=== PATIENT | male | born 1980 | race Native Hawaiian/Other Pacific Islander ===

== ENCOUNTER 2018-01-27 07:17 | Day surgery (SDC) | payer OTHER ==
[2018-01-21 12:22] VITALS: BMI 25.5
[2018-01-27 08:17] VITALS: RESP 18
[2018-01-27] MEDS ORDERED: Lidocaine 2% w Epi 1:100,000 Inj IJ ONE (09:01)
[2018-01-27] MEDS ORDERED: Bupivacaine 0.25% 20 ML INJ IJ ONE (09:01)
[2018-01-27] MEDS ORDERED: ceFAZolin 1 gm in NS 2 GM/200 ML BAG IVPB ONE (09:01)
[2018-01-27] MEDS ORDERED: Propofol 10 mg/ml Inj (20 ML) ONE ×2 (09:05→09:58)
[2018-01-27] MEDS ORDERED: Midazolam 2 MG/2 ML VIAL ONE ×2 (09:06→09:12)
[2018-01-27] MEDS ORDERED: HYDROmorphone 0.5 mg/0.5 ml ISec IVP PRN (10:28)
--- NOTE | 2018-01-27 10:32 | PCM.SURG1 ---
Surgeon's Initial Post Op Note - Surgeon's Notes Surgeon: Dr. Sarmiento Geotechnical Engineering Technician: Dr. Kaiser PGY-4 Type of Anesthesia: IV Sedation, Local Pre-Operative Diagnosis: Lipoma of left upper back Operative Findings: Lipoma of left upper back Post-Operative Diagnosis: Lipoma of left upper back Operation Performed: Excision of lipoma from left upper back Specimen/Specimens Removed: lipoma Estimated Blood Loss: EBL {In ML}: 10 Blood Products Given: N/A Drains Used: No Drains Post-Op Condition: Good Date of Surgery/Procedure: 01/27/18 Time of Surgery/Procedure: 10:32
[2018-01-27 11:36] VITALS: O2SAT 100
--- NOTE | 2018-01-27 12:08 | OP ---
PROCEDURE DATE: 01/27/2018 PREOPERATIVE DIAGNOSIS: A large lipoma of the right upper back and neck area. POSTOPERATIVE DIAGNOSIS: A large lipoma of the right upper back and neck area. PROCEDURES PERFORMED: 1. Excision of the large upper back lipoma of approximately 10 x 12 cm size. 2. Excision of the redundant skin, 8 x 2 cm size. 3. Layered closure of the wound complex, 10 x 5 cm size. ANESTHESIA: Local anesthesia plus sedation. ESTIMATED BLOOD LOSS: Around 10 mL. DRAINS: None. PATHOLOGY: A large lipoma of the right upper back and neck area as well as the redundant skin was sent for the pathology. COMPLICATIONS: None. INTRAOPERATIVE FINDINGS: The patient had a large lipoma of the right upper back of approximately 10 x 12 cm size with extremely stressed out upper back skin. DESCRIPTION OF PROCEDURE: On intraoperative steps, this is a 37-year-old male who was diagnosed with a large lipoma of the right upper back. The patient was consented for excision of the lipoma, brought to the OR, placed in the left lateral position. The right upper back and neck area was prepped and draped in usual sterile fashion. Local anesthesia was injected and first an elliptical 8 x 2 cm incision was made and upper and lower flap was created, the lateral and medial dissection was done. The dissection was carried down deep up to the underlying fascia as well as the muscles and first lipoma was excised from medially to laterally and the finger-like projection of lipoma from all the sides was also excised, the lipoma was completely excised and it was sent off the table for the pathology. Proper hemostasis was achieved. The wound was irrigated. Now, the patient had upper flap extra redundant skin and to prevent the postoperative seroma as well as the hematoma and loose skin, the upper flap was stressed and 8 x 2 cm another skin flap was excised and it was sent off the table for the pathology. Now, the upper flap again was sutured to the underlying fascia and muscles, lower flap was sutured to underlying fascia and muscles, the deep subcu with 3-0 Vicryl, superficial subcu with 3-0 Vicryl, another layer of superficial subcu with 2-0 Vicryl, skin with 4-0 Monocryl, and dry sterile dressing was applied. The patient tolerated the procedure well. Count of instrument was correct. The patient was reversed from anesthesia and sent to the postanesthesia care unit in stable condition. Jacob Sarmiento MD
[2018-01-27 12:21] VITALS: BP 130/89; PULSE 84; TEMP 97.7
== END 2018-01-27 12:40 | disposition home or self-care (01) ==
LOC: C.SDS 07:17
PROVIDERS: ATTEND Surgery Surgical Critical Care
DX: D17.1 Benign lipomatous neoplasm of skin and subcutaneous tissue of trunk (principal)
CPT/HCPCS: 11406; 12034; 88304; J0690; J2250; J2704; J3010